=== PATIENT | female | born 1940 | race Caucasian/White ===

== ENCOUNTER 2018-12-02 17:12 | Observation (INO) ==
[2018-12-02 17:43] LABS: Basophils # 0.1 K/mcL (0.0-0.2); Eosinophils # 0.1 K/mcL (0.0-0.6); Eosinophils % 1.6 %; Hematocrit 31.6 % (35.3-44.9); Immature Granulocytes % 0.4 % (0-4); Lymphocytes # 1.1 K/mcL (0.6-4.6); Lymphocytes % 14.6 %; Mean Corpuscular HGB Conc 31.6 g/dL (31.6-35.5); Mean Corpuscular Hemoglobin 26.5 pg (28.0-33.3); Mean Corpuscular Volume 83.6 fL (83.0-100.0); Mean Platelet Volume 10.2 fL (9.4-12.4); Monocytes # 0.6 K/mcL (0.0-1.3); Monocytes % 7.3 %; Neutrophils # 5.8 K/mcL (1.6-8.9); Platelet Count 208 K/mcL (140-400); Red Blood Count 3.78 M/mcL (3.82-4.97); Red Cell Distribution Width 16.6 % (11.5-14.5); Segmented Neutrophils % 75.1 %
[2018-12-02 17:51] LABS: INR 2.6; Prothrombin Time 29.3 Seconds (9.4-12.1)
[2018-12-02 17:54] LABS: Activated Partial Thrombo Time 69.3 Seconds (26.0-36.0)
[2018-12-02 18:14] LABS: BUN/Creatinine Ratio 18 (6-26); Blood Urea Nitrogen 18 mg/dL (8-23); Calcium 9.3 mg/dL (8.6-10.3); Carbon Dioxide 32 mEq/L (23-29); Chloride 94 mEq/L (98-107); Glucose 187 mg/dL (70-105); Osmolality,Calculated 281 (280-300); Potassium 4.3 mEq/L (3.5-5.1); Sodium 132 mEq/L (136-145); eGFR For Non-African Americans 54 (> 60)
[2018-12-02] MEDS ORDERED: Furosemide 40 MG/4 ML VIAL IVP ONE (18:45)
--- NOTE | 2018-12-02 19:15 | Emergency Department Note ---
Disposition Clinical Impression: Acute exacerbation of CHF (congestive heart failure) Qualifiers: Heart failure type: unspecified Qualified Code(s): I50.9 - Heart failure, unspecified Disposition: Admitted As Inpatient Condition: Fair Referrals: Diego Roblero MD [Primary Care Provider] - Forms: ED Satisfaction Letter Time of Disposition: 19:37 SOB HPI - General Chief Complaint: ED Shortness of Breath/Dyspnea Stated Complaint: SOB not feeling well Time Seen by Provider: 12/02/18 17:18 Source: patient, family Mode of arrival: private vehicle Limitations: no limitations Nursing Notes Reviewed: Yes Vital Signs Reviewed: Yes - History of Present Illness Pt Subjective Complaint: shortness of breath Onset (ago): day(s) Context: occurred during exertion Severity: severe (Says she cannot walk from one room to the next in her house due to the shortness of breath) Consistency/Duration: constant Improves with: rest Worsens with: exertion Known history of: congestive heart failure Associated symptoms: Reports: cough. Denies: chest pain, fever Treatment prior to arrival: none Cough present: Yes Cough Description: Non-Productive Cough Frequency: Intermittent Sputum production: No - Related Data Home oxygen amount: none Home Medications Medication Instructions Recorded Confirmed Losartan/Hydrochlorothiazide 1 tab PO DAILY 12/04/16 12/02/18 [Hyzaar 100-25 Tablet] Diltiazem HCl [Diltiazem ER] 120 mg PO DAILY 06/19/17 12/02/18 Glimepiride [Amaryl] 2 mg PO QAM 06/19/17 12/02/18 Metformin HCl [Glucophage] 1,000 mg PO BID 06/19/17 12/02/18 Nortriptyline [Pamelor] 25 mg PO QPM 06/19/17 12/02/18 OXcarbazepine [Oxcarbazepine] 300 mg PO BID 06/19/17 12/02/18 Previous Rx's Medication Instructions Recorded Furosemide [Lasix] 40 mg PO DAILY #30 06/20/17 Potassium Chloride 20 meq PO DAILY #30 tab.er.prt 06/20/17 Warfarin [Coumadin] 5 mg PO DAILY@1800 #30 tab 07/02/17 Allergies Allergy/AdvReac Type Severity Reaction Status Date / Time RODRICK Inhibitors AdvReac Cough Verified 06/29/17 21:33 Yqpjsuz-Qdf-Vsv Reductase AdvReac Muscle Pain Verified 06/29/17 21:33 Inhibitor [Statins] All systems ED: reviewed and negative except as stated. Constitutional: Denies: fever, chills ENT ED: Reports: throat pain, congestion. Denies: ear pain Cardiovascular: Reports: dyspnea on exertion, edema. Denies: chest pain, palpitations Respiratory: Reports: cough, dyspnea. Denies: wheezes Gastrointestinal: Denies: abdominal pain, nausea, vomiting, diarrhea Musculoskeletal: Denies: back pain Integumentary: Denies: rash Neurological: Denies: headache Past Medical History - Past Medical History Attestation: Yes The following information was validated with the patient. Source: patient, old records reviewed, obtained from family, nursing notes reviewed Medical history: Reports: atrial fibrillation, CHF, diabetes, hypertension, other Surgical history: Reports: cancer surgery (skin cancer removal right temporal area. ), knee replacement (left total knee replacement) Psychiatric history: Reports: no psych history TESTING DIRECTOR history: Reports: bilateral tubal ligation - Social History Smoking Status: Never smoker Smokeless Tobacco Status: No Alcohol use: Reports: none Drug use: Reports: none Physical Exam - General Limitations: no limitations General appearance: alert, in no apparent distress - Head Head exam: atraumatic, normocephalic, normal inspection - Eye Eye exam: Present: normal appearance, PERRL, EOMI. Absent: scleral icterus, conjunctival injection - ENT ENT exam: normal exam, normal oropharynx, mucous membranes moist, TM's normal bilaterally, normal external ear exam - Neck Neck exam: Present: normal inspection, full ROM, trachea midline. Absent: meningismus - Chest Chest inspection: Present: normal inspection, symmetric chest wall rise. Absent: tenderness - Respiratory Respiratory exam: Present: normal lung sounds bilaterally. Absent: respiratory distress, wheezes - Cardiovascular Cardiovascular exam: Present: regular rate, normal rhythm, normal heart sounds - Abdominal Exam Abdominal exam: Present: soft, Non-Tender, normal bowel sounds - Extremities Exam Extremities exam: Present: pedal edema (Mild) - Neurological Exam Neurological exam: Present: alert, oriented X3 - Psychiatric Psychiatric exam: Present: normal affect, normal mood - Skin Skin exam: Present: warm, dry. Absent: rash Course Course Narrative: Patient complains of shortness of breath. She has had some cough but is nonproductive. She is short of breath when she exerts herself. On a little short of breath when she lies flat. She is afebrile. Examination is unremarkable except for a little bit of edema in her legs. No shortness of breath workup on the patient. Disposition will be based on diagnostic results and reevaluation. - Reevaluation(s) Reevaluation #1: Chest x-ray shows pulmonary edema is worsened from baseline. I certainly would explain the patient's symptoms. We do not find anything else on the workup to explain the issue. I warned the patient some Lasix. Given the severity of her symptoms I think she needs to be admitted to the hospital for further diuresis. Contact the hospitalist. Time: 19:19 - Consultations Consultation #1: Dr. Eaton, hospitalist - I discussed the case with the hospitalist. He has accepted the patient for admission. Time: 19:36 Vital Signs Temperature 97.8 F 12/02/18 17:13 Pulse Rate 85 12/02/18 17:13 Respiratory Rate 21 12/02/18 17:13 Blood Pressure 155/100 12/02/18 17:13 O2 Sat by Pulse Oximetry 96 12/02/18 17:13 Temperature 97.8 F 12/02/18 17:19 Pulse Rate 79 12/02/18 19:25 Respiratory Rate 18 12/02/18 19:25 Blood Pressure 147/74 12/02/18 19:25 O2 Sat by Pulse Oximetry 94 12/02/18 19:25 Oxygen Delivery Oxygen Delivery Room Air Shortness of Breath/Dyspnea - Medical Records Medical records reviewed: Yes I reviewed the patient's medical records. - Lab Data Lab results reviewed: Yes I reviewed the patient's lab results. Result diagrams: 12/02/18 17:35 12/02/18 17:35 Lab Results 12/02/18 12/02/18 12/02/18 Range/Units 17:35 17:35 17:35 WBC 7.7 (4.3-11.1) K/mcL RBC 3.78 L (3.82-4.97) M/mcL Hgb 10.0 L (11.5-15.4) g/dL Hct 31.6 L (35.3-44.9) % MCV 83.6 (83.0-100.0) fL MCH 26.5 L (28.0-33.3) pg MCHC 31.6 (31.6-35.5) g/dL RDW 16.6 H (11.5-14.5) % Plt Count 208 (140-400) K/mcL MPV 10.2 (9.4-12.4) fL Immature Gran % 0.4 (0-4) % Seg Neutrophils % 75.1 % Lymphocytes % 14.6 % Monocytes % 7.3 % Eosinophils % 1.6 % Basophils % 1.0 % Neutrophils # 5.8 (1.6-8.9) K/mcL Lymphocytes # 1.1 (0.6-4.6) K/mcL Monocytes # 0.6 (0.0-1.3) K/mcL Eosinophils # 0.1 (0.0-0.6) K/mcL Basophils # 0.1 (0.0-0.2) K/mcL PT (9.4-12.1) Seconds INR APTT (26.0-36.0) Seconds D-Dimer (0-500) ng/mLFEU Sodium 132 L (136-145) mEq/L Potassium 4.3 (3.5-5.1) mEq/L Chloride 94 L (98-107) mEq/L Carbon Dioxide 32 H (23-29) mEq/L BUN 18 (8-23) mg/dL Creatinine 0.99 (0.60-1.20) mg/dL Est GFR ( Amer) > 60 (> 60) Est GFR (Non-Af Amer) 54 L (> 60) BUN/Creatinine Ratio 18 (6-26) Glucose 187 H (70-105) mg/dL Calculated Osmolality 281 (280-300) Calcium 9.3 (8.6-10.3) mg/dL Troponin I (< 0.04) ng/mL B-Natriuretic Peptide 455 H (Less than 100) pg/mL 12/02/18 12/02/18 Range/Units 17:35 17:35 WBC (4.3-11.1) K/mcL RBC (3.82-4.97) M/mcL Hgb (11.5-15.4) g/dL Hct (35.3-44.9) % MCV (83.0-100.0) fL MCH (28.0-33.3) pg MCHC (31.6-35.5) g/dL RDW (11.5-14.5) % Plt Count (140-400) K/mcL MPV (9.4-12.4) fL Immature Gran % (0-4) % Seg Neutrophils % % Lymphocytes % % Monocytes % % Eosinophils % % Basophils % % Neutrophils # (1.6-8.9) K/mcL Lymphocytes # (0.6-4.6) K/mcL Monocytes # (0.0-1.3) K/mcL Eosinophils # (0.0-0.6) K/mcL Basophils # (0.0-0.2) K/mcL PT 29.3 H (9.4-12.1) Seconds INR 2.6 APTT 69.3 H (26.0-36.0) Seconds D-Dimer 633 H (0-500) ng/mLFEU Sodium (136-145) mEq/L Potassium (3.5-5.1) mEq/L Chloride (98-107) mEq/L Carbon Dioxide (23-29) mEq/L BUN (8-23) mg/dL Creatinine (0.60-1.20) mg/dL Est GFR ( Amer) (> 60) Est GFR (Non-Af Amer) (> 60) BUN/Creatinine Ratio (6-26) Glucose (70-105) mg/dL Calculated Osmolality (280-300) Calcium (8.6-10.3) mg/dL Troponin I < 0.03 (< 0.04) ng/mL B-Natriuretic Peptide (Less than 100) pg/mL - Radiology Data Radiology results reviewed: Yes I reviewed the patient's radiology results. - EKG Data EKG attestation: Yes I reviewed and interpreted this EKG. EKG results narrative: Twelve-lead EKG performed at 1730 3 PM. Ordered, reviewed and interpreted by ED physician shows atrial fibrillation at a rate of 81. Normal axis. Good hour progression across precordium. Nonspecific intraventricular conduction delay. Nonspecific ST abnormalities somewhat diffusely. Consistent with EKGs over the past couple years.
[2018-12-02] MEDS ORDERED: Naloxone 0.4 MG/ML INJ IVP PRN (20:13)
[2018-12-02] MEDS ORDERED: Furosemide 40 MG/4 ML VIAL IVP SCH (20:13)
[2018-12-02] MEDS: OXcarbazepine 150 MG TABLET PO SCH (20:46)
[2018-12-02] MEDS ORDERED: *HR* Metformin 500 MG TABLET PO SCH (21:00)
[2018-12-03] MEDS ORDERED: *HR* Metformin 500 MG TABLET PO SCH (08:00)
[2018-12-03] MEDS ORDERED: *HR* Glimepiride 2 MG TABLET PO SCH (08:00)
[2018-12-03] MEDS ORDERED: Furosemide 40 MG/4 ML VIAL IVP SCH (08:00)
[2018-12-03] MEDS: OXcarbazepine 150 MG TABLET PO SCH (08:50)
[2018-12-03] MEDS ORDERED: Losartan/HCTZ 50-12.5 TABLET PO SCH (09:00)
[2018-12-03] MEDS ORDERED: Diltiazem CD (24hr) 120 MG CAPSULE PO SCH (09:00)
[2018-12-03 10:39] VITALS: BP 133/63
--- NOTE | 2018-12-03 12:10 | Internal Med History&Physical ---
Date of Encounter: 12/03/18 Time of Encounter: 11:30 Assessment and Plan (1) Diastolic heart failure Current visit: No Status: Acute Symptomatically improved. Continue Lasix and Hyzaar. Add low dose Toprol. Qualifiers: Heart failure chronicity: acute Qualified Code(s): I50.31 - Acute diastolic (congestive) heart failure (2) Atrial fibrillation Current visit: No Status: Chronic Continue Coumadin. Rate satisfactorily controlled with Cardizem. Qualifiers: Atrial fibrillation type: persistent Qualified Code(s): I48.1 - Persistent atrial fibrillation (3) Pulmonary hypertension Current visit: No Status: Chronic Further evaluation as per cook helper meat. (4) Hypertension Current visit: No Status: Chronic Continue Hyzaar, Lasix, and Cardizem. Start low-dose Toprol-XL. Qualifiers: Hypertension type: essential hypertension Qualified Code(s): I10 - Essential (primary) hypertension (5) Hypomagnesemia Current visit: No Status: Acute Magnesium level was 1.4 on 06/30/2017. Her PCP can monitor. (6) Anemia Current visit: No Status: Chronic Hemoglobin stable on most labs since July 2014. PCP can monitor and order further workup as needed Qualifiers: Anemia type: unspecified type Qualified Code(s): D64.9 - Anemia, unspecified (7) Type 2 diabetes mellitus Current visit: No Status: Chronic Hemoglobin A1c was 6.5% on 01/19/2018. Her PCP can monitor. Qualifiers: Diabetes mellitus fpc insulin use: without intermodal customer service use Diabetes mellitus complication status: with neurologic complications Diabetes mellitus complication detail: with polyneuropathy Qualified Code(s): E11.42 - Type 2 diabetes mellitus with diabetic polyneuropathy Internal Medicine - H&P: HPI Chief complaint: Dyspnea Admitted From: Emergency Dept Plans for Post Hospital Care: Home History of present illness: Ms. Lam is a 78 year old female who came to emergency room complaining of increasing dyspnea for several weeks. She denies chest pain but states she has a cough with minimal productivity. Her sister was adamant she come to emergency room for evaluation. She was found to have evidence of heart failure on workup and was admitted to [facility] floor for ongoing care needs. Cardiovascular history is positive for hypertension and chronic atrial fibrillation. She has been diagnosed with diastolic heart failure from echocardiogram 11/16/2018 which showed LVEF of 50% and indeterminate diastolic function. There was mild aortic regurgitation, mild mitral regurgitation, and moderate to severe tricuspid regurgitation. There was severe pulmonary hypertension with estimated RVSP of 65-70 mmHg. There was reported biatrial enlargement although LA measurement was within normal range at 3.30 cm. Right atrial size was not recorded. She denies DVT or pulmonary embolus. She reports she had a heart catheter without intervention [facility] July 2018. She does not remember significant details about the hospitalization there otherwise. She states her breathing has significantly improved since coming to emergency room and she feels back to her baseline and stable for discharge home. Past Med Surg Social Fam HX - Past Medical History Medical history: atrial fibrillation, CHF, diabetes, hypertension, other Additional medical history: vertigo Psychiatric history: no psych history - Past Surgical History Surgical History: cancer surgery, knee replacement Additional surgical history: tubal - Social History Smoking Status: Never smoker Smokeless Tobacco Status: No Alcohol use: none Drug use: none Internal Medicine - H&P: Meds Losartan/Hydrochlorothiazide [Hyzaar 100-25 Tablet] 1 tab PO DAILY 12/04/16 [History] Diltiazem HCl [Diltiazem ER] 120 mg PO DAILY 06/19/17 [History] Glimepiride [Amaryl] 2 mg PO QAM 06/19/17 [History] Metformin HCl [Glucophage] 1,000 mg PO BID 06/19/17 [History] Nortriptyline [Pamelor] 25 mg PO QPM 06/19/17 [History] OXcarbazepine [Oxcarbazepine] 300 mg PO BID 06/19/17 [History] Furosemide [Lasix] 40 mg PO DAILY #30 06/20/17 [Rx] Potassium Chloride 20 meq PO DAILY #30 tab.er.prt 06/20/17 [Rx] Warfarin [Coumadin] 5 mg PO DAILY@1800 #30 tab 07/02/17 [Rx] Allergy/AdvReac Type Severity Reaction Status Date / Time RODRICK Inhibitors AdvReac Cough Verified 06/29/17 21:33 Cfphuuv-Dre-Yjg Reductase AdvReac Muscle Pain Verified 06/29/17 21:33 Inhibitor [Statins] All Systems PM: A 10-system review of systems was performed and is negative for pertinent findings except as documented above in the HPI. Review of systems: Gen.: She states her weight has been stable the past year Cardiovascular: As per history of present illness Respiratory: She is a lifelong nonsmoker and denies chronic lung disease. She reports pulmonary function test were done several years ago. She does not use home oxygen. GI: She has had cholecystectomy. She denies disorders of her liver or exocrine pancreas : She has had tubal ligation. She denies other kidney or bladder disorders. Neurologic: She states she has "neuralgia in her head". She denies large distribution strokes or seizures. Endocrine: She was diagnosed with DM 2 approximately 20 years ago. She has hyperlipidemia but denies known thyroid disease. Hematology/oncology: She has had anemia on most labs since 2013. Anemia workup January 2018 showed low serum iron and transferrin saturation and ferritin 62. B12 and folate were unremarkable. She denies internal malignancies. Psychiatric: She denies anxiety depression or other mental health issues [place] skeletal: She has had left total knee replacement the past. She has occasional right leg pain. She denies gout or other bone joint or muscle disorders. - Constitutional Vitals: Temp Pulse Resp BP Pulse Ox 98.2 F 89 18 133/63 92 12/03/18 10:34 12/03/18 10:34 12/03/18 10:34 12/03/18 10:34 12/03/18 10:34 Exam: Gen.: She is a well-developed well-nourished female resting comfortably in bed who appears in no significant distress at present time HEENT: Head is atraumatic and normocephalic. Eyes: EOMI. There is no scleral icterus. Mouth: Mucosa is moist. Neck: Supple and nontender. There is no thyromegaly or adenopathy noted. Heart: Irregularly irregular without murmurs or gallops Lungs: No wheezes or crackles are heard. Abdomen: Soft and nontender. No masses or guarding are noted. Extremities: She has significant varicosities of superficial venules. There is trace pitting edema in the dorsum of the feet and lower legs bilaterally. Dorsalis pedis and posterior tibial pulses are trace palpable bilaterally. She has mild DJD changes of her hands. Neurologic: Mental status: She is talkative and a good historian. Cranial nerves: Smile is symmetric. Forehead wrinkles bilaterally. Tongue protrudes midline. EOMI. Motor: There is no pronator drift. Cerebellar: Finger to nose is intact bilaterally. Skin: Warm and dry Internal Med - H&P Results - Labs CBC & Chem 7: 12/02/18 17:35 12/02/18 17:35 Labs: Short CBC 12/02/18 Range/Units 17:35 WBC 7.7 (4.3-11.1) K/mcL Hgb 10.0 L (11.5-15.4) g/dL Hct 31.6 L (35.3-44.9) % Plt Count 208 (140-400) K/mcL Neutrophils # 5.8 (1.6-8.9) K/mcL BMP 12/02/18 17:35 Sodium 132 L Potassium 4.3 Chloride 94 L Carbon Dioxide 32 H BUN 18 Creatinine 0.99 Glucose 187 H Calcium 9.3 Cardiac Enzymes 12/02/18 12/02/18 12/03/18 Range/Units 17:35 23:48 05:46 Troponin I < 0.03 < 0.03 < 0.03 (< 0.04) ng/mL 12/03/18 Range/Units 11:31 Troponin I < 0.03 (< 0.04) ng/mL - Impressions ITS Impressions Chest X-Ray 12/02/18 17:18 IMPRESSION: Findings as above likely related to worsening edema. D/ / Dilcia Andre MD / Dilcia Andre MD Interpreting Provider: Dilcia Andre MD
--- NOTE | 2018-12-03 12:39 | Discharge Summary ---
Date of Encounter: 12/03/18 Time of Encounter: 12:30 - Discharge Diagnosis (1) Diastolic heart failure Priority: Primary Status: Acute Qualifiers: Heart failure chronicity: acute Qualified Code(s): I50.31 - Acute diastolic (congestive) heart failure (2) Atrial fibrillation Priority: Secondary Status: Chronic Qualifiers: Atrial fibrillation type: persistent Qualified Code(s): I48.1 - Persistent atrial fibrillation (3) Pulmonary hypertension Priority: Secondary Status: Chronic (4) Hypertension Priority: Secondary Status: Chronic Qualifiers: Hypertension type: essential hypertension Qualified Code(s): I10 - Essential (primary) hypertension (5) Hypomagnesemia Priority: Secondary Status: Acute (6) Anemia Priority: Secondary Status: Chronic Qualifiers: Anemia type: unspecified type Qualified Code(s): D64.9 - Anemia, unspecified (7) Type 2 diabetes mellitus Priority: Secondary Status: Chronic Qualifiers: Diabetes mellitus supervisor chassis assembly insulin use: without supervisor chassis assembly use Diabetes mellitus complication status: with neurologic complications Diabetes mellitus complication detail: with polyneuropathy Qualified Code(s): E11.42 - Type 2 diabetes mellitus with diabetic polyneuropathy Hospital course: Ms. Lam is a 78 year old female who came to emergency room complaining of increasing dyspnea for several weeks. She denies chest pain but states she has a cough with minimal productivity. Her sister was adamant she come to emergency room for evaluation. She was found to have evidence of heart failure on workup and was admitted to [facility] for ongoing care needs. Initial orders were written by the emergency room physician. I saw her on December 03 and performed a history physical and discharge. She was started on IV Lasix in emergency room. By the time I saw her her dyspnea had significantly improved and she felt near her baseline and stable for discharge home which I felt was reasonable. She will be prescribed low-dose Toprol-XL to assist in control of blood pressure and diastolic heart failure. She will continue her other medications as per admission. I reviewed her echocardiogram report from 11/16/2018. Her PCP and/or customer experience retail clerk can order further evaluation for pulmonary hypertension. Her PCP can monitor magnesium level, hemoglobin A1c, and order anemia workup as needed. She will follow with Dr. Diego Roblero within 1 week. Room air oximetry will be checked on 6 minute walk prior to discharge. - Time Spent with Patient Total time spent providing and/or coordinating discharge services: - Discharge Medications Prescriptions: Metoprolol Succinate [Toprol Xl] 25 mg PO DAILY #30 tab.er.24h Home Medications: Losartan/Hydrochlorothiazide [Hyzaar 100-25 Tablet] 1 tab PO DAILY 12/04/16 [History] Diltiazem HCl [Diltiazem ER] 120 mg PO DAILY 06/19/17 [History] Glimepiride [Amaryl] 2 mg PO QAM 06/19/17 [History] Metformin HCl [Glucophage] 1,000 mg PO BID 06/19/17 [History] Nortriptyline [Pamelor] 25 mg PO QPM 06/19/17 [History] OXcarbazepine [Oxcarbazepine] 300 mg PO BID 06/19/17 [History] Furosemide [Lasix] 40 mg PO DAILY #30 06/20/17 [Rx] Potassium Chloride 20 meq PO DAILY #30 tab.er.prt 06/20/17 [Rx] Warfarin [Coumadin] 5 mg PO DAILY@1800 #30 tab 07/02/17 [Rx] Metoprolol Succinate [Toprol Xl] 25 mg PO DAILY #30 tab.er.24h 12/03/18 [Rx] Allergies/Adverse Reactions: Allergy/AdvReac Type Severity Reaction Status Date / Time RODRICK Inhibitors AdvReac Cough Verified 06/29/17 21:33 Rtrupmz-Sda-Qth Reductase AdvReac Muscle Pain Verified 06/29/17 21:33 Inhibitor [Statins] Date of admission: 12/02/18 19:43 Primary care physician: Diego Roblero MD - Constitutional Vitals: Temp Pulse Resp BP Pulse Ox 98.2 F 89 18 133/63 92 12/03/18 10:34 12/03/18 10:34 12/03/18 10:34 12/03/18 10:34 12/03/18 10:34 - Patient Status Disposition: Home, Self-Care Condition: Fair - Discharge Instructions Follow Up With: Diego Roblero MD [Primary Care Provider] - 1 week - Diet and Activity Activity: resume usual activities as tolerated Diet: diabetic diet
--- NOTE | 2018-12-03 16:02 | Electrocardiograph Report ---
[address] [place], [place] [address] Test Date: 2018-12-02 Pat Name: Sharla Lam Department: [id number] Room: [facility] Gender: F Delivery Supervisor: [id number] : 1940 Requested By: Isrrael Encarnacion Order Number: [id number] Reading MD: Francoise Ford Measurements Intervals [place] Rate: 81 P: CO: 0 QRS: 73 QRSD: 155 T: 72 QT: 412 QTc: 449 Interpretive Statements ATRIAL FIBRILLATION LEFT BUNDLE BRANCH BLOCK Electronically Signed On 12-03-2018 16:00:20 EST by Francoise Ford
[2018-12-03] MEDS ORDERED: *HR* Warfarin 5 MG TABLET PO SCH (18:00)
== END 2018-12-03 15:40 | disposition home or self-care (01) ==
LOC: INPPIK 17:12 → EMEROOPIK 17:12 → INPPIK 20:07
PROVIDERS: ADMIT Internal Medicine; ATTEND Internal Medicine

== ENCOUNTER 2019-04-30 16:29 | Observation (INO) ==
[2019-04-30 17:20] LABS: Basophils # 0.1 K/mcL (0.0-0.2); Basophils % 0.9 %; Eosinophils # 0.2 K/mcL (0.0-0.6); Eosinophils % 2.2 %; Hematocrit 29.3 % (35.3-44.9); Hemoglobin 9.4 g/dL (11.5-15.4); Immature Granulocytes % 0.6 % (0-4); Lymphocytes # 1.1 K/mcL (0.6-4.6); Lymphocytes % 13.8 %; Mean Corpuscular HGB Conc 32.1 g/dL (31.6-35.5); Mean Corpuscular Hemoglobin 26.3 pg (28.0-33.3); Mean Corpuscular Volume 82.1 fL (83.0-100.0); Mean Platelet Volume 10.5 fL (9.4-12.4); Monocytes # 0.7 K/mcL (0.0-1.3); Monocytes % 8.4 %; Neutrophils # 6.1 K/mcL (1.6-8.9); Platelet Count 193 K/mcL (140-400); Red Blood Count 3.57 M/mcL (3.82-4.97); Red Cell Distribution Width 16.5 % (11.5-14.5); Segmented Neutrophils % 74.1 %; White Blood Count 8.2 K/mcL (4.3-11.1)
[2019-04-30 17:33] LABS: BUN/Creatinine Ratio 20 (6-26); Blood Urea Nitrogen 17 mg/dL (8-23); Carbon Dioxide 27 mEq/L (23-29); Chloride 95 mEq/L (98-107); Glucose 89 mg/dL (70-105); Osmolality,Calculated 273 (280-300); Potassium 4.2 mEq/L (3.5-5.1); Sodium 131 mEq/L (136-145); eGFR For African Americans > 60 (> 60); eGFR For Non-African Americans > 60 (> 60)
[2019-04-30 17:35] LABS: Troponin I < 0.03 ng/mL (< 0.04)
[2019-04-30] MEDS ORDERED: Furosemide 40 MG/4 ML VIAL IVP ONE ×2 (17:38→19:09)
--- NOTE | 2019-04-30 17:45 | Emergency Department Note ---
Disposition Clinical Impression: Congestive heart failure Qualifiers: Heart failure type: unspecified Heart failure chronicity: acute on chronic Qualified Code(s): I50.9 - Heart failure, unspecified Dyspnea Qualifiers: Dyspnea type: dyspnea on exertion Qualified Code(s): R06.09 - Other forms of dyspnea Disposition: Admitted As Inpatient Condition: Fair Referrals: Diego Roblero MD [Primary Care Provider] - Forms: ED Satisfaction Letter, Work/School Release Time of Disposition: 17:48 SOB HPI - General Chief Complaint: ED General Medical Stated Complaint: congestion/cough Time Seen by Provider: 04/30/19 16:50 Source: patient Mode of arrival: private vehicle Limitations: no limitations Nursing Notes Reviewed: Yes Vital Signs Reviewed: Yes - History of Present Illness Pt Subjective Complaint: shortness of breath Onset (ago): day(s) (Several days) Context: occurred during exertion Severity: severe (Has trouble walking [place] into the next without having to stop and sit down.) Consistency/Duration: gradually worsening Improves with: rest Worsens with: exertion Known history of: congestive heart failure Associated symptoms: Reports: other (Swelling of legs) Treatment prior to arrival: none Cough present: Yes - Related Data Home Medications Medication Instructions Recorded Confirmed Losartan/Hydrochlorothiazide 1 tab PO DAILY 12/04/16 04/30/19 [Hyzaar 100-25 Tablet] Diltiazem HCl [Diltiazem ER] 120 mg PO DAILY 06/19/17 04/30/19 Glimepiride [Amaryl] 2 mg PO QAM 06/19/17 04/30/19 Metformin HCl [Glucophage] 1,000 mg PO BID 06/19/17 04/30/19 Nortriptyline [Pamelor] 25 mg PO QPM 06/19/17 04/30/19 OXcarbazepine [Oxcarbazepine] 300 mg PO BID 06/19/17 04/30/19 Previous Rx's Medication Instructions Recorded Furosemide [Lasix] 40 mg PO DAILY #30 06/20/17 Potassium Chloride 20 meq PO DAILY #30 tab.er.prt 06/20/17 Warfarin [Coumadin] 5 mg PO DAILY@1800 #30 tab 07/02/17 Metoprolol Succinate [Toprol Xl] 25 mg PO DAILY #30 tab.er.24h 12/03/18 Allergies Allergy/AdvReac Type Severity Reaction Status Date / Time RODRICK Inhibitors AdvReac Cough Verified 06/29/17 21:33 Irtcqel-Dit-Pns Reductase AdvReac Muscle Pain Verified 06/29/17 21:33 Inhibitor [Statins] All systems ED: reviewed and negative except as stated. Constitutional: Denies: fever, chills ENT ED: Denies: ear pain, throat pain, congestion Cardiovascular: Reports: edema. Denies: chest pain, palpitations Respiratory: Reports: dyspnea. Denies: cough Gastrointestinal: Denies: abdominal pain, vomiting, diarrhea Integumentary: Denies: rash Past Medical History - Past Medical History Attestation: Yes The following information was validated with the patient. Source: patient, old records reviewed, nursing notes reviewed Medical history: Reports: atrial fibrillation, CHF, diabetes, hypertension, other Surgical history: Reports: cancer surgery (skin cancer removal right temporal area. ), knee replacement (left total knee replacement) Psychiatric history: Reports: no psych history [employer] history: Reports: bilateral tubal ligation - Social History Smoking Status: Never smoker Smokeless Tobacco Status: No Alcohol use: Reports: none Drug use: Reports: none Physical Exam - General Limitations: no limitations General appearance: alert, in no apparent distress - Head Head exam: atraumatic, normocephalic, normal inspection - Eye Eye exam: Present: normal appearance, PERRL, EOMI. Absent: scleral icterus, conjunctival injection - ENT ENT exam: normal exam, normal oropharynx, mucous membranes moist, normal external ear exam - Neck Neck exam: Present: normal inspection, full ROM, trachea midline. Absent: tenderness - Chest Chest inspection: Present: normal inspection, symmetric chest wall rise. Absent: tenderness - Respiratory Respiratory exam: Present: other (Crackles in the bases bilaterally). Absent: respiratory distress - Cardiovascular Cardiovascular exam: Present: regular rate, normal rhythm, normal heart sounds - Abdominal Exam Abdominal exam: Present: soft, Non-Tender, normal bowel sounds - Extremities Exam Extremities exam: Present: full ROM, pedal edema (Bilateral lower sure edema) - Neurological Exam Neurological exam: Present: alert, oriented X3 - Psychiatric Psychiatric exam: Present: normal affect, normal mood - Skin Skin exam: Present: warm, dry. Absent: rash Course Course Narrative: Patient presents with shortness of breath and peripheral edema still developed over the past few days. Second time in a month this is having her period in the [facility] she went saw her accountancy professor doubled up her diuretic medications for a few days. That helped her for a few days but now she is back to having symptoms again. She describes severity of her symptoms as not being able walk from one room to the next without having to sit down due to increased shortness of breath. Chest x-ray done at the urgent care shows pulmonary rest or congestion. Peripheral edema obvious here in the department. I think we will need to admit the patient for IV diuresis this time. I will talk with the hospitalist. - Consultations Consultation #1: Dr. Eaton, hospitalist - I discussed case with the hospitalist. He accepted the patient for admission. Time: 18:20 Vital Signs Temperature 98.7 F 04/30/19 16:30 Pulse Rate 88 04/30/19 16:30 Respiratory Rate 18 04/30/19 16:30 Blood Pressure 158/87 04/30/19 16:30 O2 Sat by Pulse Oximetry 98 04/30/19 16:30 Temperature 98.7 F 04/30/19 16:30 Pulse Rate 72 04/30/19 18:43 Respiratory Rate 18 04/30/19 18:43 Blood Pressure 136/65 04/30/19 18:43 O2 Sat by Pulse Oximetry 95 04/30/19 18:43 Oxygen Delivery Oxygen Delivery Room Air Shortness of Breath/Dyspnea - Medical Records Medical records reviewed: Yes I reviewed the patient's medical records. - Lab Data Lab results reviewed: Yes I reviewed the patient's lab results. Result diagrams: 04/30/19 17:05 04/30/19 17:05 Lab Results 04/30/19 04/30/19 04/30/19 Range/Units 17:05 17:05 17:05 WBC 8.2 (4.3-11.1) K/mcL RBC 3.57 L (3.82-4.97) M/mcL Hgb 9.4 L (11.5-15.4) g/dL Hct 29.3 L (35.3-44.9) % MCV 82.1 L (83.0-100.0) fL MCH 26.3 L (28.0-33.3) pg MCHC 32.1 (31.6-35.5) g/dL RDW 16.5 H (11.5-14.5) % Plt Count 193 (140-400) K/mcL MPV 10.5 (9.4-12.4) fL Immature Gran % 0.6 (0-4) % Seg Neutrophils % 74.1 % Lymphocytes % 13.8 % Monocytes % 8.4 % Eosinophils % 2.2 % Basophils % 0.9 % Neutrophils # 6.1 (1.6-8.9) K/mcL Lymphocytes # 1.1 (0.6-4.6) K/mcL Monocytes # 0.7 (0.0-1.3) K/mcL Eosinophils # 0.2 (0.0-0.6) K/mcL Basophils # 0.1 (0.0-0.2) K/mcL Sodium 131 L (136-145) mEq/L Potassium 4.2 (3.5-5.1) mEq/L Chloride 95 L (98-107) mEq/L Carbon Dioxide 27 (23-29) mEq/L BUN 17 (8-23) mg/dL Creatinine 0.85 (0.60-1.20) mg/dL Est GFR ( Amer) > 60 (> 60) Est GFR (Non-Af Amer) > 60 (> 60) BUN/Creatinine Ratio 20 (6-26) Glucose 89 (70-105) mg/dL Calculated Osmolality 273 L (280-300) Calcium 9.0 (8.6-10.3) mg/dL Troponin I < 0.03 (< 0.04) ng/mL B-Natriuretic Peptide 325 H (Less than 100) pg/mL - Radiology Data Radiology results reviewed: Yes I reviewed the patient's radiology results. - EKG Data EKG attestation: Yes I reviewed and interpreted this EKG. EKG results narrative: Twelve-lead EKG performed at 1640 4 PM. Ordered, reviewed and interpreted by ED physician showed atrial fibrillation at a rate of 75. Normal axis. Left bundle branch block. No obvious acute ischemic changes.
[2019-04-30] MEDS ORDERED: Naloxone 0.4 MG/ML INJ IVP PRN (19:09)
[2019-04-30] MEDS ORDERED: *HR* Dextrose 50 % in Water (Syg) 50 ML SYRINGE IVP PRN (19:29)
[2019-04-30] MEDS ORDERED: Dextrose Gel 15 GM/37.5 ML TUBE PO PRN ×2 (19:29)
[2019-04-30] MEDS ORDERED: D5% in Water 1,000 ML IVC PRN (19:29)
[2019-04-30] MEDS: *HR* Metformin 500 MG TABLET PO SCH (21:17)
[2019-04-30] MEDS: OXcarbazepine 150 MG TABLET PO SCH (21:17)
[2019-04-30] MEDS: Insulin LISPRO 300 UNITS/3 ML VIAL SQ SCH (21:17)
[2019-05-01 02:01] LABS: INR 2.8
[2019-05-01 02:08] LABS: Prothrombin Time 31.7 Seconds (9.4-12.1)
[2019-05-01 02:16] LABS: Magnesium 2.1 mg/dL (1.6-2.6)
[2019-05-01] MEDS: Furosemide 40 MG/4 ML VIAL IVP SCH ×2 (08:39→17:49)
[2019-05-01] MEDS: Diltiazem CD (24hr) 120 MG CAPSULE PO SCH (08:40)
[2019-05-01] MEDS: OXcarbazepine 150 MG TABLET PO SCH ×2 (08:40→19:48)
[2019-05-01] MEDS: Losartan/HCTZ 50-12.5 TABLET PO SCH (08:40)
[2019-05-01] MEDS: Insulin LISPRO 300 UNITS/3 ML VIAL SQ SCH ×4 (08:41→19:49)
[2019-05-01] MEDS: *HR* Glimepiride 2 MG TABLET PO SCH ×2 (08:41→12:11)
[2019-05-01] MEDS: Metoprolol XL (24 HR) Succ 25 MG TAB.ER.24H PO SCH (08:41)
[2019-05-01] MEDS: *HR* Metformin 500 MG TABLET PO SCH ×2 (08:42→19:49)
[2019-05-01] MEDS ORDERED: Metoprolol XL (24 HR) Succ 25 MG TAB.ER.24H PO SCH (09:00)
[2019-05-01 09:53] LABS: Folate 8.9 ng/mL (3.0-16.0)
--- NOTE | 2019-05-01 09:55 | Internal Med History&Physical ---
Date of Encounter: 05/01/19 Time of Encounter: 09:30 Assessment and Plan (1) Diastolic heart failure Current visit: No Status: Acute She has been started on IV Lasix. Continue losartan/HCTZ. Toprol-XL dose has been increased. Further workup will be done as needed. Qualifiers: Heart failure chronicity: acute on chronic Qualified Code(s): I50.33 - Acute on chronic diastolic (congestive) heart failure (2) Type 2 diabetes mellitus Current visit: No Status: Chronic Hemoglobin A1c was 6.9% on 12/09/2018. Continue metformin and Amaryl with Accu- Cheks and SSI. Qualifiers: Diabetes mellitus terminal operator insulin use: without skilled nursing use Diabetes mellitus complication status: with neurologic complications Diabetes mellitus complication detail: with polyneuropathy Qualified Code(s): E11.42 - Type 2 diabetes mellitus with diabetic polyneuropathy (3) Hypertension Current visit: No Status: Chronic Continue losartan/HCTZ and diltiazem. Toprol dose has been increased to assist in blood pressure and heart failure control. Qualifiers: Hypertension type: essential hypertension Qualified Code(s): I10 - Essential (primary) hypertension (4) Anemia Current visit: No Status: Chronic Anemia testing has been ordered. Hemoccult of stool will be done. Qualifiers: Anemia type: unspecified type Qualified Code(s): D64.9 - Anemia, unspecified (5) Atrial fibrillation Current visit: No Status: Chronic Continue warfarin, diltiazem, and Toprol-XL. Qualifiers: Atrial fibrillation type: persistent Qualified Code(s): I48.1 - Persistent atrial fibrillation (6) Mediastinal lymphadenopathy Current visit: No Status: Chronic Chest CT May 2017 showed mediastinal lymphadenopathy. Repeat chest CT will be done. Internal Medicine - H&P: HPI Chief complaint: Dyspnea Admitted From: Emergency Dept Plans for Post Hospital Care: Home History of present illness: Ms. Lam is a 78 year old female who came to emergency room complaining of increased dyspnea onset 3 days previously. She denies fevers chills chest pain vomiting or diarrhea. She noticed worsening edema for legs. She was evaluated emergency room was felt to have exacerbation of CHF. She was admitted to [facility] floor for ongoing care needs. She reports her ethylene oxide panelboard operator increased her Lasix dose to twice a day for 3 days approximately 2 weeks ago for worsening dyspnea. She felt improved after the increase but dyspnea has recently worsened since the dose was reduced. Cardiovascular history is positive for hypertension and chronic atrial fibrillation. She has been diagnosed with diastolic heart failure from echocardiogram 11/16/2018 which showed LVEF of 50% and indeterminate diastolic function. There was mild aortic regurgitation, mild mitral regurgitation, and moderate to severe tricuspid regurgitation. There was severe pulmonary hypertension with estimated RVSP of 65-70 mmHg. There was reported biatrial enlargement although LA measurement was within normal range at 3.30 cm. Right atrial size was not recorded. She denies DVT or pulmonary embolus. She reports she had a heart catheter without intervention [facility] July 2018. She does not remember significant details about the hospitalization there otherwise. Past Med Surg Social Fam HX - Past Medical History Medical history: atrial fibrillation, CHF, diabetes, hypertension, other Additional medical history: vertigo, neuralgia right side head Psychiatric history: no psych history - Past Surgical History Surgical History: cholecystectomy, orthopedic, other Additional surgical history: tubal. left knee sx - Social History Smoking Status: Never smoker Smokeless Tobacco Status: No Alcohol use: none Drug use: none - Family History Mother Living Status: Hx Family Cardiac Disorders: Yes (Heart Disease) Hx Family Endocrine Disorder: Yes (DM) Sister Living Status: Still Living Hx Family Cardiac Disorders: Yes ([place], Open Heart surgery) Internal Medicine - H&P: Meds Losartan/Hydrochlorothiazide [Hyzaar 100-25 Tablet] 1 tab PO DAILY 12/04/16 [History] Diltiazem HCl [Diltiazem ER] 120 mg PO DAILY 06/19/17 [History] Glimepiride [Amaryl] 2 mg PO QAM 06/19/17 [History] Metformin HCl [Glucophage] 1,000 mg PO BID 06/19/17 [History] Nortriptyline [Pamelor] 25 mg PO QPM 06/19/17 [History] OXcarbazepine [Oxcarbazepine] 300 mg PO BID 06/19/17 [History] Furosemide [Lasix] 40 mg PO DAILY #30 06/20/17 [Rx] Potassium Chloride 20 meq PO DAILY #30 tab.er.prt 06/20/17 [Rx] Metoprolol Succinate [Toprol Xl] 25 mg PO DAILY #30 tab.er.24h 12/03/18 [Rx] Warfarin [Coumadin] 2.5 mg PO TU 04/30/19 [History] Warfarin [Coumadin] 5 mg PO SUMOWETHFRSA 04/30/19 [History] Allergy/AdvReac Type Severity Reaction Status Date / Time RODRICK Inhibitors AdvReac Cough Verified 06/29/17 21:33 Xbdtmxh-Ttz-Ejq Reductase AdvReac Muscle Pain Verified 06/29/17 21:33 Inhibitor [Statins] All Systems PM: A 10-system review of systems was performed and is negative for pertinent findings except as documented above in the HPI. Review of systems: Review of systems from her December 2018 [facility] hospitalization were reviewed and revised as below. Gen.: Her weight has been stable at approximately 75 kg since December 2018 h ospitalization. Cardiovascular: As per history of present illness Respiratory: She is a lifelong nonsmoker and denies chronic lung disease. PFTs 04/11/2017 showed FVC 87% predicted, FEV1 91% predicted, FEV1/FVC 78%, MVV 77% predicted, and RV 80% predicted, DLCO (uncorrected) was 96% predicted. She does not use home oxygen. GI: She has had cholecystectomy. She denies disorders of her liver or exocrine pancreas : She has had tubal ligation. She denies other kidney or bladder disorders. Neurologic: She states she has "neuralgia in her head". She denies large distribution strokes or seizures. Endocrine: She was diagnosed with DM 2 approximately 20 years ago. She has hyperlipidemia but denies known thyroid disease. Hematology/oncology: She has had anemia on most labs since 2013. Anemia workup January 2018 showed low serum iron and transferrin saturation and ferritin 62. B12 and folate were unremarkable. She does not take supplemental iron. She denies internal malignancies. Psychiatric: She denies anxiety depression or other mental health issues [place] skeletal: She has had left total knee replacement the past. She has occasional right leg pain. She denies gout or other bone joint or muscle disorders. - Constitutional Vitals: Temp Pulse Resp BP Pulse Ox 98.6 F 73 18 110/74 93 05/01/19 07:28 05/01/19 07:28 05/01/19 07:28 05/01/19 07:28 05/01/19 07:28 Exam: Gen.: She is a well-developed well-nourished female resting comfortably in bed who appears in no acute distress HEENT: Head is atraumatic and normocephalic. Eyes: EOMI. There is no scleral icterus. Mouth: Mucosa is moist. Neck: Supple and nontender. There is no thyromegaly or adenopathy noted. Heart: Irregularly irregular without murmurs or gallops Lungs: No wheezes or crackles are heard. Abdomen: Soft and nontender. No masses or guarding are noted. Extremities: There is no cyanosis edema or clubbing noted. Dorsalis pedis and posterior tibial pulses are trace palpable bilaterally. She has significant superficial venule dilatations on her lower legs. Neurologic: Mental status: She is talkative and a good historian. Cranial nerves: Smile is symmetric. Forehead wrinkles bilaterally. Tongue protrudes m idline. EOMI. Motor: There is no pronator drift. Cerebellar: Finger to nose is intact bilaterally. Skin: Warm and dry Internal Med - H&P Results - Labs CBC & Chem 7: 04/30/19 17:05 04/30/19 17:05 Labs: Short CBC 04/30/19 Range/Units 17:05 WBC 8.2 (4.3-11.1) K/mcL Hgb 9.4 L (11.5-15.4) g/dL Hct 29.3 L (35.3-44.9) % Plt Count 193 (140-400) K/mcL Neutrophils # 6.1 (1.6-8.9) K/mcL BMP 04/30/19 17:05 Sodium 131 L Potassium 4.2 Chloride 95 L Carbon Dioxide 27 BUN 17 Creatinine 0.85 Glucose 89 Calcium 9.0 Cardiac Enzymes 04/30/19 04/30/19 05/01/19 Range/Units 17:05 19:29 01:17 Troponin I < 0.03 < 0.03 < 0.03 (< 0.04) ng/mL 05/01/19 Range/Units 07:07 Troponin I < 0.03 (< 0.04) ng/mL
[2019-05-01] MEDS: *HR* Warfarin 5 MG TABLET PO SCH (17:50)
[2019-05-02 06:16] LABS: Basophils # 0.1 K/mcL (0.0-0.2); Eosinophils # 0.2 K/mcL (0.0-0.6); Hematocrit 29.3 % (35.3-44.9); Hemoglobin 9.5 g/dL (11.5-15.4); Immature Granulocytes % 0.4 % (0-4); Lymphocytes # 1.4 K/mcL (0.6-4.6); Lymphocytes % 17.4 %; Mean Corpuscular HGB Conc 32.4 g/dL (31.6-35.5); Mean Corpuscular Hemoglobin 26.3 pg (28.0-33.3); Mean Corpuscular Volume 81.2 fL (83.0-100.0); Mean Platelet Volume 10.7 fL (9.4-12.4); Monocytes # 0.8 K/mcL (0.0-1.3); Neutrophils # 5.7 K/mcL (1.6-8.9); Platelet Count 197 K/mcL (140-400); Red Blood Count 3.61 M/mcL (3.82-4.97); Red Cell Distribution Width 16.2 % (11.5-14.5); Segmented Neutrophils % 69.2 %; White Blood Count 8.2 K/mcL (4.3-11.1)
[2019-05-02] MEDS: Ascorbic Acid 500 MG TABLET PO SCH (06:36)
[2019-05-02] MEDS: Furosemide 40 MG/4 ML VIAL IVP SCH ×2 (09:30→16:48)
[2019-05-02] MEDS: *HR* Metformin 500 MG TABLET PO SCH ×2 (09:31→20:05)
[2019-05-02] MEDS: Metoprolol XL (24 HR) Succ 25 MG TAB.ER.24H PO SCH (09:31)
[2019-05-02] MEDS: OXcarbazepine 150 MG TABLET PO SCH ×2 (09:31→20:05)
[2019-05-02] MEDS: Losartan/HCTZ 50-12.5 TABLET PO SCH (09:31)
[2019-05-02] MEDS: Insulin LISPRO 300 UNITS/3 ML VIAL SQ SCH ×4 (09:32→20:06)
[2019-05-02] MEDS: Diltiazem CD (24hr) 120 MG CAPSULE PO SCH (09:32)
[2019-05-02] MEDS: *HR* Glimepiride 2 MG TABLET PO SCH ×2 (09:32→12:09)
--- NOTE | 2019-05-02 10:02 | Internal Med Progress Note ---
Date of Encounter: 05/02/19 Time of Encounter: 09:50 - Assessment and plan (1) Diastolic heart failure Current Visit: No Status: Acute Assessment and plan: May 02. Continue IV Lasix, losartan/HCTZ, and higher dose Toprol. Imdur will be added. Anticipate discharge home tomorrow if stable Qualifiers: Heart failure chronicity: acute on chronic Qualified Code(s): I50.33 - Acute on chronic diastolic (congestive) heart failure (2) Type 2 diabetes mellitus Current Visit: No Status: Chronic Assessment and plan: May 02. Continue metformin, Amaryl, and Accu-Cheks with SSI. Qualifiers: Diabetes mellitus project management it specialist insulin use: without project management it specialist use Diabetes mellitus complication status: with neurologic complications Diabetes mellitus complication detail: with polyneuropathy Qualified Code(s): E11.42 - Type 2 diabetes mellitus with diabetic polyneuropathy (3) Hypertension Current Visit: No Status: Chronic Assessment and plan: May 02. Continue losartan/HCTZ, diltiazem, and higher dose Toprol. Qualifiers: Hypertension type: essential hypertension Qualified Code(s): I10 - Essential (primary) hypertension (4) Anemia Current Visit: No Status: Chronic Assessment and plan: May 02. Anemia testing showed iron 30, transferrin saturation 7%, transferrin 305, ferritin 45, B12 485, and folate 8.9. She will receive iron dextran. Qualifiers: Anemia type: unspecified type Qualified Code(s): D64.9 - Anemia, unspecified (5) Atrial fibrillation Current Visit: No Status: Chronic Assessment and plan: May 02. Continue Coumadin, diltiazem, and Toprol-XL. Qualifiers: Atrial fibrillation type: persistent Qualified Code(s): I48.1 - Persistent atrial fibrillation (6) Mediastinal lymphadenopathy Current Visit: No Status: Chronic Assessment and plan: May 02. Follow-up chest CT report did not mention this. (7) Pleural effusion Current Visit: No Status: Acute Assessment and plan: May 02. Patient's sister states an appointment with a senior construction manager in [place] is scheduled for 05/10/2019. - Subjective Interval history: May 02. She has no new complaints. - Constitutional Vitals: Temp Pulse Resp BP Pulse Ox 98.3 F 77 15 113/58 95 05/02/19 06:00 05/02/19 06:00 05/02/19 03:50 05/02/19 06:00 05/02/19 09:20 Exam: She is resting comfortably in bed and appears in no acute distress. Her affect is overall cheerful. She is hard of hearing. I reviewed her medications, labs, and CT report. Internal Medicine: Result - Labs CBC & Chem 7: 05/02/19 05:45 04/30/19 17:05 Labs: Short CBC 05/02/19 Range/Units 05:45 WBC 8.2 (4.3-11.1) K/mcL Hgb 9.5 L (11.5-15.4) g/dL Hct 29.3 L (35.3-44.9) % Plt Count 197 (140-400) K/mcL Neutrophils # 5.7 (1.6-8.9) K/mcL - ABG Interpretation ABG results: PT/INR, D-dimer PT 31.7 Seconds (9.4-12.1) H 05/01/19 01:17 - Impressions Impressions Chest CT 05/01/19 10:11 IMPRESSION: 1. Partially loculated moderate to large right pleural effusion with associated passive atelectasis predominantly in the right lower lobe. No findings to suggest superimposed pneumonia. 2. Mild bronchial wall thickening potentially due to pulmonary vascular congestion, reactive airways disease, or bronchitis. 3. Mosaic attenuation predominantly in the left upper lobe, similar appearance to the 06/30/2017 study. Small airways disease or small vessels disease is favored over edema given lack of interlobular septal thickening. 4. Mild cardiomegaly. D/ / Carson Alvarez MD / Carson Alvarez MD Interpreting Provider: Carson Alvarez MD Consult Discharge Plan - Plan Referrals: Diego Roblero MD [Primary Care Provider] - 1 week
[2019-05-02] MEDS: Isosorbide MONOnitrate (24 HR) 30 MG TAB.ER.24H PO SCH (10:36)
[2019-05-02] MEDS ORDERED: IRON DEXTRAN COMPLEX IVPB ONE ×2 (11:00→12:00)
[2019-05-02] MEDS ORDERED: SODIUM CHLORIDE 0.9% IVPB ONE ×2 (11:00→12:00)
[2019-05-02] MEDS: *HR* Warfarin 5 MG TABLET PO SCH (16:48)
[2019-05-03] MEDS: Ascorbic Acid 500 MG TABLET PO SCH (06:34)
[2019-05-03 06:49] VITALS: BP 152/71
[2019-05-03 08:11] LABS: Basophils # 0.1 K/mcL (0.0-0.2); Eosinophils # 0.2 K/mcL (0.0-0.6); Eosinophils % 2.4 %; Hematocrit 30.3 % (35.3-44.9); Hemoglobin 9.8 g/dL (11.5-15.4); Immature Granulocytes % 0.3 % (0-4); Lymphocytes # 1.2 K/mcL (0.6-4.6); Lymphocytes % 13.2 %; Mean Corpuscular HGB Conc 32.3 g/dL (31.6-35.5); Mean Corpuscular Hemoglobin 26.1 pg (28.0-33.3); Mean Corpuscular Volume 80.6 fL (83.0-100.0); Mean Platelet Volume 10.8 fL (9.4-12.4); Monocytes # 0.8 K/mcL (0.0-1.3); Monocytes % 9.4 %; Neutrophils # 6.5 K/mcL (1.6-8.9); Platelet Count 202 K/mcL (140-400); Red Blood Count 3.76 M/mcL (3.82-4.97); Red Cell Distribution Width 16.3 % (11.5-14.5); Segmented Neutrophils % 73.7 %; White Blood Count 8.9 K/mcL (4.3-11.1)
--- NOTE | 2019-05-03 08:40 | Electrocardiograph Report ---
[address] [place], [place] [address] Test Date: 2019-04-30 Pat Name: Sharla Lam Department: EDP-14 Room: [facility] Gender: F Fireworks Display Specialist: : [id number] Requested By: Isrrael Encarnacion Order Number: [id number] Reading MD: Tavo Montoya Measurements Intervals [place] Rate: 75 P: MA: QRS: 104 QRSD: 157 T: 34 QT: 438 QTc: 490 Interpretive Statements Atrial fibrillation Left bundle branch block Electronically Signed On 05-03-2019 8:39:06 EDT by Tavo Montoya
[2019-05-03] MEDS: Insulin LISPRO 300 UNITS/3 ML VIAL SQ SCH (08:57)
[2019-05-03 09:18] LABS: BUN/Creatinine Ratio 18 (6-26); Blood Urea Nitrogen 13 mg/dL (8-23); Calcium 8.7 mg/dL (8.6-10.3); Carbon Dioxide 28 mEq/L (23-29); Chloride 95 mEq/L (98-107); Glucose 87 mg/dL (70-105); Osmolality,Calculated 273 (280-300); Potassium 3.6 mEq/L (3.5-5.1); Sodium 132 mEq/L (136-145); eGFR For African Americans > 60 (> 60); eGFR For Non-African Americans > 60 (> 60)
[2019-05-03] MEDS: Furosemide 40 MG/4 ML VIAL IVP SCH ×2 (10:01→10:16)
[2019-05-03] MEDS: Losartan/HCTZ 50-12.5 TABLET PO SCH (10:01)
[2019-05-03] MEDS: OXcarbazepine 150 MG TABLET PO SCH (10:02)
[2019-05-03] MEDS: Metoprolol XL (24 HR) Succ 25 MG TAB.ER.24H PO SCH (10:02)
[2019-05-03] MEDS: *HR* Glimepiride 2 MG TABLET PO SCH (10:02)
[2019-05-03] MEDS: Diltiazem CD (24hr) 120 MG CAPSULE PO SCH (10:02)
[2019-05-03] MEDS: Isosorbide MONOnitrate (24 HR) 30 MG TAB.ER.24H PO SCH (10:02)
[2019-05-03] MEDS: *HR* Metformin 500 MG TABLET PO SCH (10:02)
--- NOTE | 2019-05-03 10:25 | Discharge Summary ---
Date of Encounter: 05/03/19 Time of Encounter: 10:12 - Discharge Diagnosis (1) Diastolic heart failure Priority: Primary Status: Acute Qualifiers: Heart failure chronicity: acute on chronic Qualified Code(s): I50.33 - Acute on chronic diastolic (congestive) heart failure (2) Type 2 diabetes mellitus Priority: Secondary Status: Chronic Qualifiers: Diabetes mellitus long term care administrator insulin use: without long term care administrator use Diabetes mellitus complication status: with neurologic complications Diabetes mellitus complication detail: with polyneuropathy Qualified Code(s): E11.42 - Type 2 diabetes mellitus with diabetic polyneuropathy (3) Hypertension Priority: Secondary Status: Chronic Qualifiers: Hypertension type: essential hypertension Qualified Code(s): I10 - Essential (primary) hypertension (4) Anemia Priority: Secondary Status: Chronic Qualifiers: Anemia type: unspecified type Qualified Code(s): D64.9 - Anemia, unspecified (5) Atrial fibrillation Priority: Secondary Status: Chronic Qualifiers: Atrial fibrillation type: persistent Qualified Code(s): I48.1 - Persistent atrial fibrillation (6) Mediastinal lymphadenopathy Priority: Secondary Status: Resolved (7) Pleural effusion Priority: Secondary Status: Acute Hospital course: Ms. Lam is a 78 year old female who came to emergency room complaining of increased dyspnea onset 3 days previously. She denies fevers chills chest pain vomiting or diarrhea. She noticed worsening edema for legs. She was evaluated emergency room was felt to have exacerbation of CHF. She was admitted to [facility] floor for ongoing care needs. Initial orders were written by the emergency room physician. I saw her on May 01 and performed a history and physical. She was started on IV Lasix in emergency room. Losartan/HCTZ was continued and Toprol dose was increased. Isosorbide was added later. She had good clinical response with resolution of dyspnea and decrease of BN peptide to 199 by day of discharge. She will continue this regimen at home. Anemia testing showed iron 30, transferrin saturation 7%, transferrin 305, ferritin 45, B12 485, and folate 8.9. She received an iron dextran infusion. Hemoglobin ziyad to 9.8 by day of discharge. She will continue with oral ferrous sulfate with ascorbic acid at discharge. She developed borderline hypoglycemia. Glimepiride was decreased to 1 mg daily and this will be continued at discharge. She will also continue metformin. There were no new problems and on Janette 3 she felt stable for discharge home. She will follow with her PCP Dr. Diego Roblero within 1 week. - Time Spent with Patient Total time spent providing and/or coordinating discharge services: - Discharge Medications Prescriptions: New Glimepiride [Amaryl] 1 mg PO QAM tablet Ferrous Sulfate 325 mg PO 0630 #30 tablet Isosorbide MONOnitrate (24 HR) [Imdur] 30 mg PO DAILY #30 tab.er.24h Furosemide [Lasix] 80 mg PO DAILY #60 tablet Metoprolol XL (24 HR) Succ [Toprol XL] 50 mg PO DAILY #30 tab.er.24h Ascorbic Acid [Vitamin C] 500 mg PO 0630 #30 tablet Continued Losartan/Hydrochlorothiazide [Hyzaar 100-25 Tablet] 1 tab PO DAILY Metformin HCl [Glucophage] 1,000 mg PO BID Diltiazem HCl [Diltiazem ER] 120 mg PO DAILY OXcarbazepine [Oxcarbazepine] 300 mg PO BID Nortriptyline [Pamelor] 25 mg PO QPM Potassium Chloride 20 meq PO DAILY #30 tab.er.prt Warfarin [Coumadin] 5 mg PO SUMOWETHFRSA Warfarin [Coumadin] 2.5 mg PO TU Discontinued Glimepiride [Amaryl] 2 mg PO QAM Furosemide [Lasix] 40 mg PO DAILY #30 Metoprolol Succinate [Toprol Xl] 25 mg PO DAILY #30 tab.er.24h Home Medications: Losartan/Hydrochlorothiazide [Hyzaar 100-25 Tablet] 1 tab PO DAILY 12/04/16 [History] Diltiazem HCl [Diltiazem ER] 120 mg PO DAILY 06/19/17 [History] Metformin HCl [Glucophage] 1,000 mg PO BID 06/19/17 [History] Nortriptyline [Pamelor] 25 mg PO QPM 06/19/17 [History] OXcarbazepine [Oxcarbazepine] 300 mg PO BID 06/19/17 [History] Potassium Chloride 20 meq PO DAILY #30 tab.er.prt 06/20/17 [Rx] Warfarin [Coumadin] 2.5 mg PO TU 04/30/19 [History] Warfarin [Coumadin] 5 mg PO SUMOWETHFRSA 04/30/19 [History] Ascorbic Acid [Vitamin C] 500 mg PO 0630 #30 tablet 05/03/19 [Rx] Ferrous Sulfate 325 mg PO 0630 #30 tablet 05/03/19 [Rx] Furosemide [Lasix] 80 mg PO DAILY #60 tablet 05/03/19 [Rx] Glimepiride [Amaryl] 1 mg PO QAM tablet 05/03/19 [Rx] Isosorbide MONOnitrate (24 HR) [Imdur] 30 mg PO DAILY #30 tab.er.24h 05/03/19 [Rx] Metoprolol XL (24 HR) Succ [Toprol XL] 50 mg PO DAILY #30 tab.er.24h 05/03/19 [Rx] Allergies/Adverse Reactions: Allergy/AdvReac Type Severity Reaction Status Date / Time RODRICK Inhibitors AdvReac Cough Verified 06/29/17 21:33 [id number] Reductase AdvReac Muscle Pain Verified 06/29/17 21:33 Inhibitor [Statins] Date of admission: 04/30/19 18:49 Primary care physician: Diego Roblero MD - Constitutional Vitals: Temp Pulse Resp BP Pulse Ox 98.5 F 79 16 152/71 98 05/03/19 06:48 05/03/19 06:48 05/03/19 06:48 05/03/19 06:48 05/03/19 06:48 - Patient Status Disposition: Home, Self-Care Condition: Fair - Discharge Instructions Follow Up With: Diego Roblreo MD [Primary Care Provider] - 1 week - Diet and Activity Activity: resume usual activities as tolerated Diet: diabetic diet, low salt diet
[2019-05-04] MEDS ORDERED: *HR* Warfarin 2.5 MG TABLET PO SCH (18:00)
== END 2019-05-03 11:42 | disposition home or self-care (01) ==
LOC: INPPIK 16:29 → EMEROOPIK 16:29 → INPPIK 19:02
PROVIDERS: ADMIT Internal Medicine; ATTEND Internal Medicine

== ENCOUNTER 2021-07-26 12:09 | Observation (INO) ==
[2021-07-26] MEDS ORDERED: Furosemide 40 MG/4 ML VIAL IVP ONE (13:04)
[2021-07-26 13:17] LABS: Basophils # 0.1 K/mcL (0.0-0.2); Basophils % 0.7 %; Eosinophils # 0.2 K/mcL (0.0-0.6); Eosinophils % 2.3 %; Hematocrit 29.8 % (35.3-44.9); Hemoglobin 9.6 g/dL (11.5-15.4); Immature Granulocytes % 0.5 % (0-4); Lymphocytes % 11.8 %; Mean Corpuscular HGB Conc 32.2 g/dL (31.6-35.5); Mean Corpuscular Hemoglobin 27.7 pg (28.0-33.3); Mean Corpuscular Volume 85.9 fL (83.0-100.0); Mean Platelet Volume 11.3 fL (9.4-12.4); Monocytes # 0.5 K/mcL (0.0-1.3); Monocytes % 6.5 %; Neutrophils # 6.4 K/mcL (1.6-8.9); Platelet Count 229 K/mcL (140-400); Red Blood Count 3.47 M/mcL (3.82-4.97); Red Cell Distribution Width 15.7 % (11.5-14.5); Segmented Neutrophils % 78.2 %; White Blood Count 8.2 K/mcL (4.3-11.1)
[2021-07-26 13:32] LABS: INR 2.7; Prothrombin Time 30.9 Seconds (9.4-12.1)
[2021-07-26 13:34] LABS: BUN/Creatinine Ratio 17 (6-26); Blood Urea Nitrogen 16 mg/dL (8-23); Calcium 8.6 mg/dL (8.6-10.3); Carbon Dioxide 24 mEq/L (23-29); Chloride 93 mEq/L (98-107); Glucose 212 mg/dL (70-105); Osmolality,Calculated 277 (280-300); Potassium 3.5 mEq/L (3.5-5.1); Sodium 130 mEq/L (136-145); eGFR For African Americans > 60 (> 60); eGFR For Non-African Americans 58 (> 60)
[2021-07-26] MEDS ORDERED: Naloxone 0.4 MG/ML INJ IVP PRN (15:14)
[2021-07-26] MEDS ORDERED: Acetaminophen 325 MG TABLET PO PRN (15:14)
[2021-07-26] MEDS ORDERED: Ondansetron 4 MG/2 ML VIAL IVP PRN (15:14)
[2021-07-26] MEDS ORDERED: MOM Conc 10 ML UD.LIQ PO PRN (15:14)
[2021-07-26] MEDS ORDERED: Perflutren Lipid Microsphere 1.3 ML in 0.9 % Sodium Chloride 8.7 ML IVP PRN (16:03)
[2021-07-26] MEDS ORDERED: *HR* Dextrose 50 % in Water (Vial) 50 ML VIAL IVP PRN (16:39)
[2021-07-26] MEDS ORDERED: Dextrose Gel 15 GM/37.5 ML TUBE PO PRN ×2 (16:39)
[2021-07-26] MEDS ORDERED: D5% in Water 1,000 ML IVC PRN (16:39)
[2021-07-26] MEDS: *HR* Warfarin 5 MG TABLET PO ONE ×2 (17:12→17:16)
[2021-07-26] MEDS ORDERED: Warfarin perPT PO PRN (18:00)
[2021-07-26] MEDS: Insulin LISPRO 300 UNITS/3 ML VIAL SUBQ SCH (22:36)
[2021-07-26] MEDS: OXcarbazepine 150 MG TABLET PO SCH (22:38)
[2021-07-26] MEDS: Furosemide 40 MG/4 ML VIAL IVP SCH (22:38)
[2021-07-26 22:54] LABS: Bilirubin,Urine Negative (Negative); Blood,Urine Trace-intact (Negative); Clarity,Urine Slightly Cloudy (Clear); Glucose,Urine (UA) Normal (Normal); Ketones,Urine Negative (Negative); Leukocyte Esterase,Urine Moderate (Negative); Nitrite,Urine Negative (Negative); Protein,Urine Negative (Neg-Trace); Urobilinogen,Urine Normal (Normal)
[2021-07-26 23:27] LABS: Color,Urine Light Yellow (Yellow)
[2021-07-26 23:29] LABS: Hyaline Casts,Urine Few per lpf (None Seen); Squamous Epithelial Cell,Urine Few per hpf (None-Few)
[2021-07-26 23:30] LABS: Bacteria,Urine Few per hpf (None-Few)
[2021-07-27 07:57] LABS: INR 2.8; Prothrombin Time 31.9 Seconds (9.4-12.1)
[2021-07-27 08:00] LABS: Basophils # 0.1 K/mcL (0.0-0.2); Eosinophils # 0.2 K/mcL (0.0-0.6); Eosinophils % 1.9 %; Hematocrit 31.5 % (35.3-44.9); Hemoglobin 10.1 g/dL (11.5-15.4); Immature Granulocytes % 0.5 % (0-4); Lymphocytes # 1.4 K/mcL (0.6-4.6); Lymphocytes % 14.6 %; Mean Corpuscular HGB Conc 32.1 g/dL (31.6-35.5); Mean Corpuscular Hemoglobin 27.6 pg (28.0-33.3); Mean Corpuscular Volume 86.1 fL (83.0-100.0); Mean Platelet Volume 11.1 fL (9.4-12.4); Monocytes # 0.8 K/mcL (0.0-1.3); Monocytes % 7.7 %; Neutrophils # 7.3 K/mcL (1.6-8.9); Platelet Count 270 K/mcL (140-400); Red Blood Count 3.66 M/mcL (3.82-4.97); Red Cell Distribution Width 15.8 % (11.5-14.5); Segmented Neutrophils % 74.3 %; White Blood Count 9.8 K/mcL (4.3-11.1)
[2021-07-27] MEDS: Insulin LISPRO 300 UNITS/3 ML VIAL SUBQ SCH ×4 (08:00→20:50)
[2021-07-27 08:10] LABS: BUN/Creatinine Ratio 16 (6-26); Blood Urea Nitrogen 14 mg/dL (8-23); Calcium 8.6 mg/dL (8.6-10.3); Carbon Dioxide 27 mEq/L (23-29); Chloride 96 mEq/L (98-107); Glucose 121 mg/dL (70-105); Osmolality,Calculated 278 (280-300); Potassium 3.5 mEq/L (3.5-5.1); Sodium 133 mEq/L (136-145); eGFR For African Americans > 60 (> 60); eGFR For Non-African Americans > 60 (> 60)
[2021-07-27] MEDS: cefTRIAXone 2,000 MG in 0.9 % Sodium Chloride Mini Bag 100 ML IVPB SCH (08:10)
[2021-07-27] MEDS: Magnesium Oxide 400 MG TABLET PO SCH (08:11)
[2021-07-27] MEDS: *HR* Glimepiride 2 MG TABLET PO SCH (08:11)
[2021-07-27] MEDS: OXcarbazepine 150 MG TABLET PO SCH ×2 (08:12→20:49)
[2021-07-27] MEDS: Furosemide 40 MG/4 ML VIAL IVP SCH ×3 (08:59→20:49)
[2021-07-27] MEDS ORDERED: Metoprolol XL (24 HR) Succ 50 MG TAB.ER.24H PO SCH (09:00)
[2021-07-27] MEDS ORDERED: *HR* Warfarin 5 MG TABLET PO SCH (09:00)
[2021-07-27] MEDS ORDERED: *HR* Warfarin 5 MG TABLET PO ONE (18:00)
[2021-07-28 07:36] LABS: Basophils # 0.1 K/mcL (0.0-0.2); Basophils % 0.9 %; Eosinophils # 0.2 K/mcL (0.0-0.6); Eosinophils % 2.8 %; Hematocrit 30.3 % (35.3-44.9); Hemoglobin 9.8 g/dL (11.5-15.4); Immature Granulocytes % 0.4 % (0-4); Lymphocytes # 1.1 K/mcL (0.6-4.6); Lymphocytes % 15.7 %; Mean Corpuscular HGB Conc 32.3 g/dL (31.6-35.5); Mean Corpuscular Hemoglobin 27.5 pg (28.0-33.3); Mean Corpuscular Volume 84.9 fL (83.0-100.0); Mean Platelet Volume 11.1 fL (9.4-12.4); Monocytes # 0.6 K/mcL (0.0-1.3); Monocytes % 8.8 %; Platelet Count 204 K/mcL (140-400); Red Blood Count 3.57 M/mcL (3.82-4.97); Red Cell Distribution Width 15.7 % (11.5-14.5); Segmented Neutrophils % 71.4 %
[2021-07-28 07:57] LABS: INR 2.6; Prothrombin Time 29.6 Seconds (9.4-12.1)
[2021-07-28 08:04] LABS: BUN/Creatinine Ratio 14 (6-26); Blood Urea Nitrogen 11 mg/dL (8-23); Calcium 8.5 mg/dL (8.6-10.3); Carbon Dioxide 28 mEq/L (23-29); Chloride 97 mEq/L (98-107); Glucose 123 mg/dL (70-105); Osmolality,Calculated 279 (280-300); Potassium 3.4 mEq/L (3.5-5.1); Sodium 134 mEq/L (136-145); eGFR For African Americans > 60 (> 60); eGFR For Non-African Americans > 60 (> 60)
[2021-07-28 08:07] VITALS: BP 145/72; PULSE 83; RESP 14; TEMP 97.9
[2021-07-28] MEDS: Furosemide 40 MG/4 ML VIAL IVP SCH (09:43)
[2021-07-28 09:53] VITALS: O2SAT 96
[2021-07-28] MEDS: *HR* Glimepiride 2 MG TABLET PO SCH (09:57)
[2021-07-28] MEDS: OXcarbazepine 150 MG TABLET PO SCH (09:57)
[2021-07-28] MEDS: Magnesium Oxide 400 MG TABLET PO SCH (09:57)
[2021-07-28] MEDS: cefTRIAXone 2,000 MG in 0.9 % Sodium Chloride Mini Bag 100 ML IVPB SCH (09:57)
[2021-07-28] MEDS: Insulin LISPRO 300 UNITS/3 ML VIAL SUBQ SCH (11:00)
[2021-07-28] MEDS ORDERED: *HR* Warfarin 2.5 MG TABLET PO ONE (18:00)
== END 2021-07-28 11:35 | disposition home health service (06) ==
LOC: EMEROOPIK 12:09 → INPPIK 12:09
PROVIDERS: ADMIT Family Medicine; ATTEND Family Medicine

== ENCOUNTER 2022-02-27 12:30 | Inpatient (IN) ==
[2022-02-27] MEDS: OXcarbazepine 150 MG TABLET PO SCH (23:56)
[2022-02-28 07:29] LABS: Basophils # 0.1 K/mcL (0.0-0.2); Basophils % 0.9 %; Eosinophils # 0.5 K/mcL (0.0-0.6); Eosinophils % 4.8 %; Hematocrit 25.4 % (35.3-44.9); Hemoglobin 7.9 g/dL (11.5-15.4); Immature Granulocytes % 2.2 % (0-4); Lymphocytes # 1.6 K/mcL (0.6-4.6); Lymphocytes % 16.4 %; Mean Corpuscular HGB Conc 31.1 g/dL (31.6-35.5); Mean Corpuscular Hemoglobin 29.5 pg (28.0-33.3); Mean Corpuscular Volume 94.8 fL (83.0-100.0); Mean Platelet Volume 11.9 fL (9.4-12.4); Monocytes # 0.6 K/mcL (0.0-1.3); Monocytes % 5.9 %; Neutrophils # 6.9 K/mcL (1.6-8.9); Platelet Count 226 K/mcL (140-400); Red Blood Count 2.68 M/mcL (3.82-4.97); Red Cell Distribution Width 15.6 % (11.5-14.5); Segmented Neutrophils % 69.8 %; White Blood Count 9.8 K/mcL (4.3-11.1)
[2022-02-28 07:57] LABS: Calcium 8.5 mg/dL (8.6-10.3); Potassium 3.8 mEq/L (3.5-5.1)
[2022-02-28 08:29] LABS: Prothrombin Time 33.3 Seconds (9.4-12.1)
[2022-02-28] MEDS ORDERED: Torsemide 20 MG TABLET PO SCH (09:00)
[2022-02-28] MEDS ORDERED: Acetaminophen 325 MG TABLET PO PRN (12:09)
[2022-02-28] MEDS ORDERED: *HR* Dextrose 50 % in Water (Syg) 50 ML SYRINGE IVP PRN (12:09)
[2022-02-28] MEDS ORDERED: D5% in Water 1,000 ML IVC PRN (12:09)
[2022-02-28] MEDS ORDERED: Dextrose 4 GM Chewable Tablets PO PRN ×2 (12:09)
[2022-02-28] MEDS: Cholecalciferol (D-3) 1,000 UNIT (25MCG) TABLET PO SCH (12:17)
[2022-02-28] MEDS: amLODIPine 5 MG TABLET PO SCH (12:18)
[2022-02-28] MEDS: OXcarbazepine 150 MG TABLET PO SCH ×2 (12:19→20:29)
[2022-02-28] MEDS: Magnesium Oxide 400 MG TABLET PO SCH (12:19)
[2022-02-28] MEDS: Metoprolol XL (24 HR) Succ 50 MG TAB.ER.24H PO SCH (12:19)
[2022-02-28] MEDS: Vancomycin Oral Soln 125 MG/2.5 ML UDC PO SCH ×4 (12:19→22:08)
[2022-02-28] MEDS: Acetaminophen 325 MG TABLET PO PRN (17:25)
[2022-02-28] MEDS: Insulin LISPRO 300 UNITS/3 ML VIAL SUBQ SCH (17:26)
[2022-02-28] MEDS ORDERED: *HR* Warfarin 5 MG TABLET PO SCH (18:00)
[2022-02-28] MEDS ORDERED: *HR* Warfarin 1 MG TABLET PO ONE (18:00)
[2022-02-28] MEDS ORDERED: Warfarin perPT PO PRN (18:00)
[2022-03-01 08:43] LABS: INR 2.3
[2022-03-01] MEDS: Magnesium Oxide 400 MG TABLET PO SCH (09:01)
[2022-03-01] MEDS: Metoprolol XL (24 HR) Succ 50 MG TAB.ER.24H PO SCH (09:02)
[2022-03-01] MEDS: amLODIPine 5 MG TABLET PO SCH (09:02)
[2022-03-01] MEDS: Cholecalciferol (D-3) 1,000 UNIT (25MCG) TABLET PO SCH (09:02)
[2022-03-01] MEDS: Aspirin 81 MG TAB.CHEW PO SCH (09:02)
[2022-03-01] MEDS: OXcarbazepine 150 MG TABLET PO SCH ×2 (09:02→21:03)
[2022-03-01] MEDS: Vancomycin Oral Soln 125 MG/2.5 ML UDC PO SCH ×4 (09:03→21:03)
[2022-03-01] MEDS: Insulin LISPRO 300 UNITS/3 ML VIAL SUBQ SCH ×3 (09:03→18:06)
[2022-03-01] MEDS ORDERED: *HR* Warfarin 5 MG TABLET PO ONE (18:00)
[2022-03-01] MEDS: Acetaminophen 325 MG TABLET PO PRN (21:10)
[2022-03-02 06:46] LABS: INR 2.1; Prothrombin Time 23.5 Seconds (9.4-12.1)
[2022-03-02] MEDS: Insulin LISPRO 300 UNITS/3 ML VIAL SUBQ SCH ×3 (08:31→17:02)
[2022-03-02] MEDS: Metoprolol XL (24 HR) Succ 50 MG TAB.ER.24H PO SCH (08:31)
[2022-03-02] MEDS: Cholecalciferol (D-3) 1,000 UNIT (25MCG) TABLET PO SCH (08:32)
[2022-03-02] MEDS: OXcarbazepine 150 MG TABLET PO SCH ×2 (08:33→21:21)
[2022-03-02] MEDS: amLODIPine 5 MG TABLET PO SCH (08:34)
[2022-03-02] MEDS: Magnesium Oxide 400 MG TABLET PO SCH (08:34)
[2022-03-02] MEDS: Aspirin 81 MG TAB.CHEW PO SCH (08:34)
[2022-03-02] MEDS: Vancomycin Oral Soln 125 MG/2.5 ML UDC PO SCH ×4 (08:35→21:21)
[2022-03-02] MEDS ORDERED: *HR* Warfarin 5 MG TABLET PO ONE (18:00)
[2022-03-03 07:28] LABS: INR 2.4; Prothrombin Time 26.9 Seconds (9.4-12.1)
[2022-03-03] MEDS: Furosemide 20 MG TABLET PO SCH ×2 (07:30→11:06)
[2022-03-03] MEDS: Cholecalciferol (D-3) 1,000 UNIT (25MCG) TABLET PO SCH (07:30)
[2022-03-03] MEDS: OXcarbazepine 150 MG TABLET PO SCH ×2 (07:30→20:12)
[2022-03-03] MEDS: Magnesium Oxide 400 MG TABLET PO SCH (07:30)
[2022-03-03] MEDS: Aspirin 81 MG TAB.CHEW PO SCH (07:30)
[2022-03-03] MEDS: Insulin LISPRO 300 UNITS/3 ML VIAL SUBQ SCH ×3 (10:46→16:35)
[2022-03-03] MEDS: amLODIPine 5 MG TABLET PO SCH (10:47)
[2022-03-03] MEDS: Vancomycin Oral Soln 125 MG/2.5 ML UDC PO SCH ×4 (11:05→20:14)
[2022-03-03] MEDS ORDERED: *HR* Warfarin 2.5 MG TABLET PO ONE (18:00)
[2022-03-04 08:21] LABS: INR 2.1; Prothrombin Time 22.8 Seconds (9.4-12.1)
[2022-03-04] MEDS: Insulin LISPRO 300 UNITS/3 ML VIAL SUBQ SCH ×3 (08:45→16:21)
[2022-03-04] MEDS: Cholecalciferol (D-3) 1,000 UNIT (25MCG) TABLET PO SCH (09:37)
[2022-03-04] MEDS: OXcarbazepine 150 MG TABLET PO SCH ×2 (09:37→20:11)
[2022-03-04] MEDS: Aspirin 81 MG TAB.CHEW PO SCH (09:38)
[2022-03-04] MEDS: Magnesium Oxide 400 MG TABLET PO SCH (09:38)
[2022-03-04] MEDS: Furosemide 20 MG TABLET PO SCH (09:38)
[2022-03-04] MEDS: Vancomycin Oral Soln 125 MG/2.5 ML UDC PO SCH ×4 (09:38→20:11)
[2022-03-04] MEDS: amLODIPine 5 MG TABLET PO SCH (09:38)
[2022-03-04 13:07] LABS: Basophils # 0.1 K/mcL (0.0-0.2); Basophils % 0.8 %; Eosinophils # 0.4 K/mcL (0.0-0.6); Eosinophils % 3.6 %; Hemoglobin 7.2 g/dL (11.5-15.4); Immature Granulocytes % 1.3 % (0-4); Lymphocytes # 1.1 K/mcL (0.6-4.6); Lymphocytes % 9.9 %; Mean Corpuscular HGB Conc 31.3 g/dL (31.6-35.5); Mean Corpuscular Hemoglobin 29.6 pg (28.0-33.3); Mean Corpuscular Volume 94.7 fL (83.0-100.0); Mean Platelet Volume 11.8 fL (9.4-12.4); Monocytes # 0.7 K/mcL (0.0-1.3); Monocytes % 6.5 %; Neutrophils # 8.3 K/mcL (1.6-8.9); Platelet Count 209 K/mcL (140-400); Red Blood Count 2.43 M/mcL (3.82-4.97); Red Cell Distribution Width 15.7 % (11.5-14.5); Segmented Neutrophils % 77.9 %; White Blood Count 10.6 K/mcL (4.3-11.1)
[2022-03-04 13:22] LABS: Calcium 8.5 mg/dL (8.6-10.3); Potassium 4.5 mEq/L (3.5-5.1)
[2022-03-04] MEDS ORDERED: 0.9 % Sodium Chloride 250 ML IVC SCH (13:45)
[2022-03-04] MEDS ORDERED: *HR* Warfarin 5 MG TABLET PO ONE (18:00)
[2022-03-05 07:29] LABS: Basophils # 0.1 K/mcL (0.0-0.2); Basophils % 0.9 %; Eosinophils # 0.4 K/mcL (0.0-0.6); Eosinophils % 3.8 %; Hematocrit 25.8 % (35.3-44.9); Hemoglobin 8.3 g/dL (11.5-15.4); Immature Granulocytes % 0.8 % (0-4); Lymphocytes % 10.3 %; Mean Corpuscular HGB Conc 32.2 g/dL (31.6-35.5); Mean Corpuscular Hemoglobin 29.1 pg (28.0-33.3); Mean Corpuscular Volume 90.5 fL (83.0-100.0); Mean Platelet Volume 12.2 fL (9.4-12.4); Monocytes # 0.7 K/mcL (0.0-1.3); Neutrophils # 7.2 K/mcL (1.6-8.9); Platelet Count 172 K/mcL (140-400); Red Blood Count 2.85 M/mcL (3.82-4.97); Red Cell Distribution Width 16.4 % (11.5-14.5); Segmented Neutrophils % 77.2 %; White Blood Count 9.3 K/mcL (4.3-11.1)
[2022-03-05 07:36] LABS: Calcium 8.6 mg/dL (8.6-10.3); Potassium 4.3 mEq/L (3.5-5.1)
[2022-03-05 07:37] LABS: INR 1.9; Prothrombin Time 20.6 Seconds (9.4-12.1)
[2022-03-05] MEDS: Insulin LISPRO 300 UNITS/3 ML VIAL SUBQ SCH ×3 (08:34→17:00)
[2022-03-05] MEDS: Aspirin 81 MG TAB.CHEW PO SCH (08:36)
[2022-03-05] MEDS: amLODIPine 5 MG TABLET PO SCH (08:36)
[2022-03-05] MEDS: Furosemide 20 MG TABLET PO SCH (08:36)
[2022-03-05] MEDS: Cholecalciferol (D-3) 1,000 UNIT (25MCG) TABLET PO SCH (08:37)
[2022-03-05] MEDS: Magnesium Oxide 400 MG TABLET PO SCH (08:37)
[2022-03-05] MEDS: OXcarbazepine 150 MG TABLET PO SCH ×2 (08:37→20:13)
[2022-03-05] MEDS: Vancomycin Oral Soln 125 MG/2.5 ML UDC PO SCH (09:50)
[2022-03-05] MEDS ORDERED: *HR* Warfarin 5 MG TABLET PO ONE (18:00)
[2022-03-06 06:48] LABS: INR 1.8; Prothrombin Time 19.7 Seconds (9.4-12.1)
[2022-03-06] MEDS: Cholecalciferol (D-3) 1,000 UNIT (25MCG) TABLET PO SCH (08:07)
[2022-03-06] MEDS: OXcarbazepine 150 MG TABLET PO SCH ×2 (08:07→20:44)
[2022-03-06] MEDS: Aspirin 81 MG TAB.CHEW PO SCH (08:07)
[2022-03-06] MEDS: Furosemide 20 MG TABLET PO SCH (08:07)
[2022-03-06] MEDS: Magnesium Oxide 400 MG TABLET PO SCH (08:08)
[2022-03-06] MEDS: amLODIPine 5 MG TABLET PO SCH (08:08)
[2022-03-06] MEDS ORDERED: *HR* Warfarin 5 MG TABLET PO ONE (18:00)
[2022-03-07 07:29] LABS: INR 1.8; Prothrombin Time 20.1 Seconds (9.4-12.1)
[2022-03-07 08:17] LABS: Hematocrit 26.1 % (35.3-44.9); Hemoglobin 8.4 g/dL (11.5-15.4); Mean Corpuscular HGB Conc 32.2 g/dL (31.6-35.5); Mean Corpuscular Hemoglobin 29.6 pg (28.0-33.3); Mean Corpuscular Volume 91.9 fL (83.0-100.0); Mean Platelet Volume 11.9 fL (9.4-12.4); Platelet Count 171 K/mcL (140-400); Red Blood Count 2.84 M/mcL (3.82-4.97); Red Cell Distribution Width 15.6 % (11.5-14.5); White Blood Count 8.7 K/mcL (4.3-11.1)
[2022-03-07 08:45] LABS: Calcium 8.4 mg/dL (8.6-10.3); Potassium 3.7 mEq/L (3.5-5.1)
[2022-03-07] MEDS: Magnesium Oxide 400 MG TABLET PO SCH (09:21)
[2022-03-07] MEDS: Aspirin 81 MG TAB.CHEW PO SCH (09:21)
[2022-03-07] MEDS: Cholecalciferol (D-3) 1,000 UNIT (25MCG) TABLET PO SCH (09:21)
[2022-03-07] MEDS: OXcarbazepine 150 MG TABLET PO SCH ×2 (09:22→21:15)
[2022-03-07] MEDS: amLODIPine 5 MG TABLET PO SCH (09:22)
[2022-03-07] MEDS: Furosemide 20 MG TABLET PO SCH (09:22)
[2022-03-07] MEDS ORDERED: *HR* Warfarin 3 MG TABLET PO ONE (18:00)
[2022-03-08 07:47] LABS: Prothrombin Time 22.2 Seconds (9.4-12.1)
[2022-03-08] MEDS: Cholecalciferol (D-3) 1,000 UNIT (25MCG) TABLET PO SCH (10:22)
[2022-03-08] MEDS: Aspirin 81 MG TAB.CHEW PO SCH (10:24)
[2022-03-08] MEDS: Magnesium Oxide 400 MG TABLET PO SCH (10:24)
[2022-03-08] MEDS: Furosemide 20 MG TABLET PO SCH (10:24)
[2022-03-08] MEDS: OXcarbazepine 150 MG TABLET PO SCH ×2 (10:24→21:26)
[2022-03-08] MEDS: amLODIPine 5 MG TABLET PO SCH (10:24)
[2022-03-08] MEDS ORDERED: *HR* Warfarin 3 MG TABLET PO ONE (18:00)
[2022-03-09 07:38] LABS: INR 2.1; Prothrombin Time 23.3 Seconds (9.4-12.1)
[2022-03-09] MEDS: Furosemide 20 MG TABLET PO SCH (08:26)
[2022-03-09] MEDS: OXcarbazepine 150 MG TABLET PO SCH ×2 (08:26→19:46)
[2022-03-09] MEDS: amLODIPine 5 MG TABLET PO SCH (08:26)
[2022-03-09] MEDS: Magnesium Oxide 400 MG TABLET PO SCH (08:27)
[2022-03-09] MEDS: Aspirin 81 MG TAB.CHEW PO SCH (08:27)
[2022-03-09] MEDS: Cholecalciferol (D-3) 1,000 UNIT (25MCG) TABLET PO SCH (08:27)
[2022-03-09] MEDS ORDERED: *HR* Warfarin 3 MG TABLET PO ONE (18:00)
[2022-03-10 07:38] LABS: INR 2.5; Prothrombin Time 27.8 Seconds (9.4-12.1)
[2022-03-10] MEDS: Magnesium Oxide 400 MG TABLET PO SCH (08:20)
[2022-03-10] MEDS: Cholecalciferol (D-3) 1,000 UNIT (25MCG) TABLET PO SCH (08:20)
[2022-03-10] MEDS: Furosemide 20 MG TABLET PO SCH (08:21)
[2022-03-10] MEDS: Aspirin 81 MG TAB.CHEW PO SCH (08:21)
[2022-03-10] MEDS: OXcarbazepine 150 MG TABLET PO SCH ×2 (08:21→21:32)
[2022-03-10] MEDS: amLODIPine 5 MG TABLET PO SCH (08:27)
[2022-03-10] MEDS ORDERED: *HR* Warfarin 2.5 MG TABLET PO ONE (18:00)
[2022-03-11 07:32] LABS: Hematocrit 22.7 % (35.3-44.9); Hemoglobin 7.2 g/dL (11.5-15.4); Mean Corpuscular HGB Conc 31.7 g/dL (31.6-35.5); Mean Corpuscular Hemoglobin 28.8 pg (28.0-33.3); Mean Corpuscular Volume 90.8 fL (83.0-100.0); Mean Platelet Volume 12.4 fL (9.4-12.4); Platelet Count 181 K/mcL (140-400); Red Cell Distribution Width 14.6 % (11.5-14.5); White Blood Count 6.3 K/mcL (4.3-11.1)
[2022-03-11 07:42] LABS: INR 2.6; Prothrombin Time 28.8 Seconds (9.4-12.1)
[2022-03-11 07:55] LABS: Calcium 8.5 mg/dL (8.6-10.3); Potassium 3.8 mEq/L (3.5-5.1)
[2022-03-11] MEDS: Aspirin 81 MG TAB.CHEW PO SCH (09:33)
[2022-03-11] MEDS: OXcarbazepine 150 MG TABLET PO SCH ×2 (09:34→20:40)
[2022-03-11] MEDS: Cholecalciferol (D-3) 1,000 UNIT (25MCG) TABLET PO SCH (09:34)
[2022-03-11] MEDS: Furosemide 20 MG TABLET PO SCH (09:34)
[2022-03-11] MEDS: amLODIPine 5 MG TABLET PO SCH (09:34)
[2022-03-11] MEDS: Magnesium Oxide 400 MG TABLET PO SCH (09:34)
[2022-03-11] MEDS ORDERED: 0.9 % Sodium Chloride 250 ML IVC SCH (14:30)
[2022-03-11] MEDS ORDERED: 0.9 % Sodium Chloride 250 ML ONE (16:22)
[2022-03-11] MEDS ORDERED: *HR* Warfarin 2.5 MG TABLET PO ONE (18:00)
[2022-03-12 07:17] LABS: Basophils # 0.1 K/mcL (0.0-0.2); Basophils % 1.4 %; Eosinophils # 0.2 K/mcL (0.0-0.6); Eosinophils % 2.8 %; Hematocrit 27.4 % (35.3-44.9); Hemoglobin 8.9 g/dL (11.5-15.4); Immature Granulocytes % 0.7 % (0-4); Lymphocytes # 0.9 K/mcL (0.6-4.6); Lymphocytes % 11.8 %; Mean Corpuscular HGB Conc 32.5 g/dL (31.6-35.5); Mean Corpuscular Hemoglobin 28.8 pg (28.0-33.3); Mean Corpuscular Volume 88.7 fL (83.0-100.0); Monocytes # 0.6 K/mcL (0.0-1.3); Monocytes % 8.7 %; Neutrophils # 5.4 K/mcL (1.6-8.9); Platelet Count 186 K/mcL (140-400); Red Blood Count 3.09 M/mcL (3.82-4.97); Red Cell Distribution Width 14.8 % (11.5-14.5); Segmented Neutrophils % 74.6 %; White Blood Count 7.2 K/mcL (4.3-11.1)
[2022-03-12 07:53] LABS: Calcium 8.5 mg/dL (8.6-10.3); Potassium 3.9 mEq/L (3.5-5.1)
[2022-03-12] MEDS: OXcarbazepine 150 MG TABLET PO SCH ×2 (08:07→21:36)
[2022-03-12] MEDS: Furosemide 20 MG TABLET PO SCH (08:07)
[2022-03-12] MEDS: amLODIPine 5 MG TABLET PO SCH (08:07)
[2022-03-12] MEDS: Aspirin 81 MG TAB.CHEW PO SCH (08:07)
[2022-03-12] MEDS: Magnesium Oxide 400 MG TABLET PO SCH (08:07)
[2022-03-12] MEDS: Cholecalciferol (D-3) 1,000 UNIT (25MCG) TABLET PO SCH (08:07)
[2022-03-12 14:33] LABS: INR 2.5; Prothrombin Time 28.1 Seconds (9.4-12.1)
[2022-03-12] MEDS ORDERED: *HR* Warfarin 5 MG TABLET PO ONE (18:00)
[2022-03-13 07:42] LABS: Hematocrit 26.6 % (35.3-44.9); Hemoglobin 8.7 g/dL (11.5-15.4); Mean Corpuscular HGB Conc 32.7 g/dL (31.6-35.5); Mean Corpuscular Hemoglobin 29.3 pg (28.0-33.3); Mean Corpuscular Volume 89.6 fL (83.0-100.0); Mean Platelet Volume 11.7 fL (9.4-12.4); Platelet Count 201 K/mcL (140-400); Red Blood Count 2.97 M/mcL (3.82-4.97); Red Cell Distribution Width 14.5 % (11.5-14.5); White Blood Count 6.8 K/mcL (4.3-11.1)
[2022-03-13 07:54] LABS: INR 2.2; Prothrombin Time 24.6 Seconds (9.4-12.1)
[2022-03-13 08:18] LABS: Calcium 8.5 mg/dL (8.6-10.3)
[2022-03-13] MEDS: Magnesium Oxide 400 MG TABLET PO SCH (09:23)
[2022-03-13] MEDS: Furosemide 20 MG TABLET PO SCH (09:23)
[2022-03-13] MEDS: Aspirin 81 MG TAB.CHEW PO SCH (09:23)
[2022-03-13] MEDS: amLODIPine 5 MG TABLET PO SCH (09:24)
[2022-03-13] MEDS: OXcarbazepine 150 MG TABLET PO SCH ×2 (09:24→21:37)
[2022-03-13] MEDS: Cholecalciferol (D-3) 1,000 UNIT (25MCG) TABLET PO SCH (09:25)
[2022-03-13] MEDS ORDERED: *HR* Warfarin 5 MG TABLET PO ONE (18:00)
[2022-03-14 07:58] LABS: INR 2.1; Prothrombin Time 23.3 Seconds (9.4-12.1)
[2022-03-14] MEDS: Furosemide 20 MG TABLET PO SCH (08:40)
[2022-03-14] MEDS: OXcarbazepine 150 MG TABLET PO SCH ×2 (08:40→19:52)
[2022-03-14] MEDS: amLODIPine 5 MG TABLET PO SCH (08:40)
[2022-03-14] MEDS: Cholecalciferol (D-3) 1,000 UNIT (25MCG) TABLET PO SCH (08:40)
[2022-03-14] MEDS: Aspirin 81 MG TAB.CHEW PO SCH (08:40)
[2022-03-14] MEDS: Magnesium Oxide 400 MG TABLET PO SCH (08:40)
[2022-03-14 15:29] LABS: Hematocrit 29.2 % (35.3-44.9); Hemoglobin 9.2 g/dL (11.5-15.4); Mean Corpuscular HGB Conc 31.5 g/dL (31.6-35.5); Mean Corpuscular Hemoglobin 29.1 pg (28.0-33.3); Mean Corpuscular Volume 92.4 fL (83.0-100.0); Platelet Count 233 K/mcL (140-400); Red Blood Count 3.16 M/mcL (3.82-4.97); Red Cell Distribution Width 14.4 % (11.5-14.5); White Blood Count 7.2 K/mcL (4.3-11.1)
[2022-03-14] MEDS ORDERED: *HR* Warfarin 5 MG TABLET PO ONE (18:00)
[2022-03-14 19:50] VITALS: O2SAT 96
[2022-03-15 06:53] VITALS: BP 138/63; PULSE 84; RESP 18; TEMP 98.2
[2022-03-15 07:24] LABS: INR 2.2; Prothrombin Time 24.7 Seconds (9.4-12.1)
[2022-03-15] MEDS: Furosemide 20 MG TABLET PO SCH (08:01)
[2022-03-15] MEDS: OXcarbazepine 150 MG TABLET PO SCH (08:01)
[2022-03-15] MEDS: Magnesium Oxide 400 MG TABLET PO SCH (08:01)
[2022-03-15] MEDS: amLODIPine 5 MG TABLET PO SCH (08:01)
[2022-03-15] MEDS: Cholecalciferol (D-3) 1,000 UNIT (25MCG) TABLET PO SCH (08:02)
[2022-03-15] MEDS: Aspirin 81 MG TAB.CHEW PO SCH (08:02)
== END 2022-03-15 11:52 | disposition home health service (06) | DRG 372 ==
LOC: INPPIK 21:06
PROVIDERS: ADMIT Internal Medicine; ATTEND Internal Medicine